=== PATIENT | female | born 1985 | race Caucasian/White ===

== ENCOUNTER 2025-07-19 14:50 | Emergency (ER) | payer SELFPAY ==
[~2025-07-19] VITALS: Ht 162.6 cm; Wt 47.6 kg
[2025-07-19 15:02] VITALS: BP 125/87; TEMP 97.9
[2025-07-19 17:10] VITALS: O2SAT 98
== END 2025-07-19 17:14 | disposition home or self-care (01) ==
LOC: ER 14:50
DX: S90.31XA Contusion of right foot, initial encounter (principal); M79.671 Pain in right foot; Z85.828 Personal history of other malignant neoplasm of skin; Z90.79 Acquired absence of other genital organ(s); V03.90XA Pedestrian on foot injured in collision with car, pick-up truck or van, unspecified whether traffic or nontraffic accident, initial encounter; Y93.89 Activity, other specified; Y92.488 Other paved roadways as the place of occurrence of the external cause; Y99.8 Other external cause status
CPT/HCPCS: 73630-TC